=== PATIENT | male | born 1995 | race Caucasian/White ===

== ENCOUNTER 2021-04-19 12:10 | Emergency (ER) | payer BC ==
[~2021-04-19] VITALS: Ht 177.8 cm; Wt 81.6 kg
--- NOTE | 2021-04-19 12:37 | NUR ---
TO ER BED 12, L HAND LACERATION W/ A BROKEN WINE GLASS 1 HOUR AGO. UTD W TETANUS SHOT, [id number], BREATHING EVEN AND NON LABORED
--- NOTE | 2021-04-19 12:47 | NUR ---
DEVIN RAZA AT BEDSIDE FOR WOUND IRRIGATION.
[2021-04-19] MEDS ORDERED: LIDOCAINE HCL/MPF 1% 30 ML VIAL IJ ONE (14:48)
[2021-04-19] MEDS ORDERED: LIDOCAINE HCL/PF 1% 30 ML VIAL TP ONE (15:00)
--- NOTE | 2021-04-19 15:18 | NUR ---
DR LAMA AT BEDSIDE
[2021-04-19 15:41] VITALS: BP 133/82
== END 2021-04-19 15:42 | disposition home or self-care (01) ==
LOC: ER 12:22
DX: S61.217A Laceration without foreign body of left little finger without damage to nail, initial encounter (principal); W25.XXXA Contact with sharp glass, initial encounter; Y93.89 Activity, other specified; Y92.89 Other specified places as the place of occurrence of the external cause; Y99.8 Other external cause status
CPT/HCPCS: 12001; 73130; 99283; A6403; J3490

== ENCOUNTER 2021-04-29 14:18 | Emergency (ER) | payer BC ==
[~2021-04-29] VITALS: Ht 177.8 cm; Wt 81.6 kg
[2021-04-29 14:47] VITALS: BP 129/89
--- NOTE | 2021-04-29 16:15 | NUR ---
WOUND DRESSING DONE.
[2021-04-29] MEDS: BACITRACIN ZINC OINT PACKET 1 EA PACKET TP ONE (16:27)
--- NOTE | 2021-04-29 16:27 | NUR ---
Patient discharged to home in stable condition. Written and verbal after care instructions given. Patient verbalizes understanding of instruction.
== END 2021-04-29 16:28 | disposition home or self-care (01) ==
LOC: ER 14:21
DX: S61.217D Laceration without foreign body of left little finger without damage to nail, subsequent encounter (principal); Z60.2 Problems related to living alone; X58.XXXD Exposure to other specified factors, subsequent encounter